=== PATIENT | male | born 1970 | race Caucasian/White ===

== ENCOUNTER 2016-12-10 09:56 | Day surgery (SDC) | payer OTHER ==
[~2016-12-10] VITALS: Ht 182.9 cm; Wt 82.3 kg
[2016-12-10] MEDS ORDERED: SODIUM CHLORIDE 0.9% 1,000 ML IV ONE ×2 (10:00→10:08)
[2016-12-10] MEDS ORDERED: GABA-531 PO (10:24)
[2016-12-10] MEDS ORDERED: BUPR150SR PO (10:24)
[2016-12-10] MEDS ORDERED: LIDOCAINE HCL/PF 1% 30 ML VIAL ONE (12:47)
[2016-12-10] MEDS ORDERED: IOHEXOL 300 MG/ML 10 ML VIAL ONE (12:47)
[2016-12-10 12:48] VITALS: BP 111/60
[2016-12-10] MEDS ORDERED: BUPIVACAINE HCL/PF 0.5% 10 ML VIAL ONE (12:51)
[2016-12-10 12:58] VITALS: BP 101/49
[2016-12-10] MEDS ORDERED: LIDOCAINE HCL/PF 1% 30 ML VIAL INJ ONE (13:00)
[2016-12-10] MEDS ORDERED: BUPIVACAINE HCL/PF 0.5% 10 ML VIAL IARTIC ONE (13:00)
[2016-12-10] MEDS ORDERED: IOHEXOL 300 MG/ML 10 ML VIAL IARTIC ONE (13:00)
== END 2016-12-10 13:40 | disposition home or self-care (01) ==
LOC: SDS 09:56
PROVIDERS: ATTEND Physical Medicine & Rehabilitation Pain Medicine
DX: M54.12 Radiculopathy, cervical region (principal)
CPT/HCPCS: 62321; J1040; J3490 ×2; J7030; Q9967